=== PATIENT | female | born 1960 | race Caucasian/White ===

== ENCOUNTER → 2021-01-23 | Outpatient (CLI) | payer BC ==
[~2021-01-23] MED LIST: CRANBERRY400 MG PO; FLAXSEED OIL1000 MG PO; HYDROCODON-ACE1 EACH PO; IBUPROFEN 200200 M1 PO; K-DUR 20 MEQ T20 MEQ PO; LEVOTHROID137 MCG PO; METHOCARBAMOL500 M1 PO; MULTIVITAMINS PO; VITAMIN D1000 UNI1 PO; VITCB500GO PO; [UNRECOGNIZED DRUG - OTHER] PO
== END ==
LOC: NUC 08:29
PROVIDERS: ATTEND Family Medicine
DX: Z78.0 Asymptomatic menopausal state (principal)